=== PATIENT | female | born 1980 | race African-American/Black ===

== ENCOUNTER 2022-01-25 18:51 | Emergency (ER) | payer OTHER ==
[2022-01-25 19:24] VITALS: BP 117/71; PULSE 77; RESP 18; TEMP 98.1; BMI 37.6
[2022-01-25] MEDS ORDERED: SODIUM CHLORIDE 1,000 ML IV STA (19:45)
[2022-01-25] MEDS ORDERED: ACETAMINOPHEN 1000 MG/100 ML BAG IVPB ONE (19:45)
[2022-01-25] MEDS ORDERED: ACETAMINOPHEN INJECTION 100 ML IVPB ONE (20:39)
[2022-01-25 21:20] LABS: EPI CELLS 6 /uL (0-25.1); HCG,QUALITATIVE URINE Negative; HYALINE CASTS 1 /uL (0-3.1); URINE APPEARANCE CLEAR; URINE BACTERIA 30 /uL (0-1359); URINE BILIRUBIN NEGATIVE (NEGATIVE); URINE COLOR YELLOW; URINE GLUCOSE (UA) NEGATIVE (NEGATIVE); URINE KETONE NEGATIVE (NEGATIVE); URINE LEUK ESTERASE NEGATIVE (NEGATIVE); URINE NITRITE NEGATIVE (NEGATIVE); URINE PROTEIN NEGATIVE (NEGATIVE); URINE RBC 1076 /uL (0-23.9); URINE UROBILINOGEN 0.2 mg/dL (0.2-1.0); URINE WBC 10 /uL (0-25.8)
[2022-01-25 21:43] LABS: BASO % 1.9 % (0-2.0); HEMATOCRIT 26.8 % (32.4-45.2); HEMOGLOBIN 8.4 GM/dL (10.7-15.3); LYMPH % 28.8 % (8-40); MCH 19.3 pg (25.7-33.7); MCHC 31.5 g/dl (32.0-36.0); MEAN CELL VOLUME 61.4 fl (80-96); NEUT % 56.3 % (42.8-82.8); PLATELET COUNT 337 10^3/uL (134-434); RBC 4.37 M/mm3 (3.60-5.2); RDW 19.1 % (11.6-15.6)
[2022-01-25 21:54] LABS: CALCIUM 8.9 mg/dL (8.5-10.1)
[2022-01-25 21:55] LABS: ALBUMIN 3.1 g/dl (3.4-5.0); BLOOD UREA NITROGEN 14.7 mg/dL (7-18)
[2022-01-25 21:58] LABS: CREATININE 0.7 mg/dL (0.55-1.3)
[2022-01-25 21:59] LABS: TOT PROT 7.7 g/dl (6.4-8.2)
[2022-01-25 22:00] LABS: BILIRUBIN,TOTAL 0.5 mg/dL (0.2-1)
[2022-01-25 22:43] LABS: ANISOCYTOSIS 1+; MACROCYTOSIS 0; OVALOCYTE 1+; TARGET CELLS 1+; TEAR DROP CELLS 1+
== END 2022-01-25 23:49 | disposition home or self-care (01) ==
LOC: JER 18:51
PROC: 3E033NZ Introduction of Analgesics, Hypnotics, Sedatives into Peripheral Vein, Percutaneous Approach (ICD-10-PCS; principal; 2022-01-25)
PROC: 3E0337Z Introduction of Electrolytic and Water Balance Substance into Peripheral Vein, Percutaneous Approach (ICD-10-PCS; 2022-01-25)
DX: R10.84 Generalized abdominal pain (principal)
CPT/HCPCS: 36415; 74177-TC; 80053; 81003; 83690; 84703; 85025; 87086; 99285-25; Q9967